=== PATIENT | female | born 1990 | race Caucasian/White ===

== ENCOUNTER 2017-12-25 21:13 | Emergency (ER) | payer SELFPAY ==
[~2017-12-25] VITALS: Ht 149.9 cm; Wt 57.0 kg
[2017-12-25] MEDS ORDERED: SODIUM CHLORIDE 0.9% 1,000 ML IV ONE (23:38)
[2017-12-25] MEDS ORDERED: KETOROLAC 30MG/ML VIAL IV STA (23:38)
[2017-12-25 23:56] LABS: CLARITY URINE CLEAR (CLEAR); COLOR URINE YELLOW (YELLOW); KETONES URINE NEGATIVE (NEGATIVE); LEUKOCYTE ESTERASE URINE NEGATIVE (NEGATIVE); NITRITE URINE NEGATIVE (NEGATIVE); OCCULT BLOOD URINE NEGATIVE (NEGATIVE); PH URINE 6.5 (4.5-8.0); PROTEIN URINE NEGATIVE (NEGATIVE); SPECIFIC GRAVITY URINE 1.023 (1.005-1.030); UROBILINOGEN URINE 0.2 E.U./dL (0.2-1.0)
[2017-12-26 00:33] LABS: BASOPHILS % 0.3 % (0.0-2.0); EOSINOPHILS % 0.3 % (0.0-5.0); HEMATOCRIT. 33.5 % (36.0-48.0); HEMOGLOBIN. 10.6 g/dL (12.0-16.0); LYMPHOCYTES % 21.1 % (20.0-50.0); MEAN CORPUSCULAR HEMOGLOBIN 22.8 pg (28.0-32.0); MEAN PLATELET VOLUME 8.5 fl (7.4-10.4); MONOCYTES % 14.5 % (2.0-8.0); NEUTROPHILS % 63.8 % (40.0-76.0); PLATELET 271 x1000/uL (130-400); RED BLOOD CELL COUNT 4.66 mill/uL (4.2-5.4); RED CELL DISTRIBUTION WIDTH 13.8 % (11.6-14.6)
[2017-12-26 00:39] LABS: CHLORIDE 105 mEq/L (98-107)
[2017-12-26 00:40] LABS: HCG SCREEN NEGATIVE
[2017-12-26 00:57] LABS: INR 1.1; PROTHROMBIN TIME 10.7 sec (9.1-11.1)
[2017-12-26 02:40] VITALS: BP 136/75
== END 2017-12-26 02:40 | disposition home or self-care (01) ==
LOC: ER 21:13
DX: K80.50 Calculus of bile duct without cholangitis or cholecystitis without obstruction (principal); N13.30 Unspecified hydronephrosis; N20.0 Calculus of kidney; D50.9 Iron deficiency anemia, unspecified; F17.200 Nicotine dependence, unspecified, uncomplicated; F12.10 Cannabis abuse, uncomplicated
CPT/HCPCS: 36415; 76705; 80053; 81003; 81025; 83605; 83690; 84703; 85025; 85379; 85610; 96361; 96374; 99285; J1885; J7030

== ENCOUNTER 2018-05-06 15:49 | Emergency (ER) | payer SELFPAY ==
[~2018-05-06] VITALS: Ht 149.9 cm; Wt 57.0 kg
[2018-05-06 16:02] VITALS: BP 145/91
[2018-05-06] MEDS ORDERED: IBUPROFEN 600MG TABLET PO ONE (18:45)
[2018-05-06] MEDS ORDERED: LIDOCAINE HCL/PF 1% 10 MG/ML 5ML VIAL IJ ONE (18:45)
[2018-05-06] MEDS ORDERED: BACITRACIN ZINC OINT UDPKT TOP ONE (18:45)
== END 2018-05-06 21:02 | disposition left against medical advice (07) ==
LOC: ER 15:49
DX: S61.216A Laceration without foreign body of right little finger without damage to nail, initial encounter (principal); F12.10 Cannabis abuse, uncomplicated; W25.XXXA Contact with sharp glass, initial encounter; Y93.89 Activity, other specified; Y92.89 Other specified places as the place of occurrence of the external cause; Y99.8 Other external cause status
CPT/HCPCS: 73130; 99283; J3490